=== PATIENT | female | born 1945 | race Caucasian/White ===

== ENCOUNTER 2025-04-06 15:45 | Inpatient (IN) | payer MEDICARE, MEDICAID ==
[~2025-04-06] VITALS: Ht 160 cm; Wt 85.3 kg
[2025-04-06 15:45] VITALS: BP 119/59; PULSE 68; RESP 18; TEMP 36.4; O2SAT 97
[~2025-04-06 15:45] MED LIST: ATOR40TA70 PO; FURO40TA5 PO; SACU1TAB7 PO; SPIR25TA6 PO
[2025-04-06] MEDS ORDERED: GUAIFENESIN 200MG/10ML SUGAR FREE UDC PO PRN (17:00)
[2025-04-06] MEDS ORDERED: ACETAMINOPHEN 650MG/20.3ML UDC PO PRN (17:00)
[2025-04-06] MEDS ORDERED: MAGNESIUM/ALUMINUM HYDROXIDE/SIMETHICONE 30ML UDC PO PRN (17:00)
[2025-04-06] MEDS ORDERED: CLONIDINE 0.1MG TABLET PO PRN (17:00)
[2025-04-06] MEDS ORDERED: DEXTROSE 50% WATER 50ML SYRINGE IV PRN ×2 (17:00→17:30)
[2025-04-06] MEDS ORDERED: INSULIN LISPRO 100 UNITS/ML SUBCUT SCH (17:00)
[2025-04-06] MEDS ORDERED: ONDANSETRON HCL 4MG/2ML INJ IV PRN (17:00)
[2025-04-06] MEDS: BLOOD SUGAR DIAGNOSTIC STRIP TEST SCH (17:31)
[2025-04-06] MEDS ORDERED: IPRATROPIUM/ALBUTEROL 0.5-3(2.5)MG/3ML NEB HHN PRN (17:31)
[2025-04-06] MEDS: INSULIN LISPRO 100 UNITS/ML SUBCUT SCH (17:35)
[2025-04-06 19:00] VITALS: BP 135/72; PULSE 84; RESP 18; TEMP 36.6
[2025-04-06 20:00] VITALS: BP 122/56; PULSE 84; RESP 18; TEMP 36.6; O2SAT 99
[2025-04-06] MEDS ORDERED: BLOOD SUGAR DIAGNOSTIC STRIP TEST SCH (21:00)
[2025-04-06] MEDS: ATORVASTATIN CALCIUM 40MG TABLET PO SCH (21:14)
[2025-04-06] MEDS: CARVEDILOL 3.125 MG TABLET PO SCH (21:14)
[2025-04-06] MEDS: SACUBITRIL/VALSARTAN 49MG/51MG TABLET PO SCH (21:14)
[2025-04-06] MEDS: FAMOTIDINE 20MG TABLET PO SCH (21:20)
[2025-04-07 07:21] LABS: HEMATOCRIT. 35.9 % (36.0-48.0); MEAN CORPUSCULAR HEMOGLOBIN 31.9 pg (28.0-32.0); MEAN CORPUSCULAR HGB CONC 33.3 g/dL (31.0-37.0); MEAN CORPUSCULAR VOLUME 95.6 fL (81.0-99.0); MEAN PLATELET VOLUME 7.5 fl (7.4-10.4); PLATELET 228 x1000/uL (130-400); RED BLOOD CELL COUNT 3.76 mill/uL (4.2-5.4); RED CELL DISTRIBUTION WIDTH 15.2 % (11.6-14.6); WHITE BLOOD COUNT 7.5 x1000/uL (4.5-11.0)
[2025-04-07 07:23] LABS: CARBON DIOXIDE 28 mEq/L (21-32); CHLORIDE 106 mEq/L (98-107); POTASSIUM 4.2 mEq/L (3.5-5.1); SODIUM 142 mEq/L (136-145)
[2025-04-07 07:24] LABS: CALCIUM 8.7 mg/dL (8.7-10.4)
[2025-04-07 07:28] LABS: CREATININE 0.8 mg/dL (0.6-1.0); GLUCOSE 96 mg/dL (70-105)
[2025-04-07 07:29] LABS: UREA NITROGEN BLOOD 19 mg/dL (9-23)
[2025-04-07 07:30] LABS: ALANINE AMINOTRANSFERASE 33 IU/L (10-49); ALBUMIN 3.5 g/dL (3.2-4.8); ASPARTATE AMINOTRANSFERASE 23 IU/L (<34)
[2025-04-07 07:31] LABS: BILIRUBIN TOTAL 0.8 mg/dL (0.1-1.0); PREALBUMIN 18.1 mg/dl (10.0-40.0); PROTEIN TOTAL 5.3 g/dL (6.0-8.3); THYROID STIMULATING HORMONE 1.97 uIU/mL (0.55-4.78)
[2025-04-07 07:37] LABS: FERRITIN 305 ng/mL (10-291); FOLIC ACID (FOLATE) SERUM 14.66 ng/mL (>5.38)
[2025-04-07 07:38] LABS: VITAMIN B12 SERUM 621 pg/mL (211-911)
[2025-04-07 07:46] LABS: IRON 56 ug/dL (50-170)
[2025-04-07 07:48] LABS: TOTAL IRON BINDING CAPACITY 261 ug/dl (250-425)
[2025-04-07 07:53] LABS: DIFFERENTIAL COMMENT 1
[2025-04-07 08:00] VITALS: BP 110/48; PULSE 91; RESP 18; TEMP 36.1; O2SAT 97
[2025-04-07] MEDS: LIDOCAINE 5% PATCH TOP SCH (08:52)
[2025-04-07] MEDS: ENOXAPARIN 40MG/0.4ML SYR SUBCUT SCH (08:53)
[2025-04-07] MEDS: DOCUSATE SODIUM 100MG CAPSULE PO SCH (08:53)
[2025-04-07] MEDS: NICOTINE 7MG PATCH TD SCH (08:53)
[2025-04-07] MEDS: EMPAGLIFLOZIN 10MG TABLET PO SCH (08:54)
[2025-04-07 20:00] VITALS: BP 146/78; PULSE 93; RESP 20; TEMP 36; O2SAT 93
[2025-04-07 20:13] LABS: PLATELET ESTIMATE NORMAL
[2025-04-08 08:00] VITALS: BP 116/64; PULSE 86; RESP 18; TEMP 36.4; O2SAT 98
[2025-04-08] MEDS: ACETAMINOPHEN 650MG/20.3ML UDC PO PRN (12:34)
[2025-04-08] MEDS: IBUPROFEN 400MG TABLET PO PRN (15:33)
[2025-04-08 20:00] VITALS: BP 116/63; PULSE 74; RESP 18; TEMP 35.9; O2SAT 100
[2025-04-09 08:00] VITALS: BP 106/53; PULSE 71; RESP 20; TEMP 36.4; O2SAT 100
[2025-04-09 09:30] VITALS: BP_SYST 79; BP_SYST 92; BP_DIAS 43; BP_DIAS 68
[2025-04-09 10:30] VITALS: BP 101/73
[2025-04-09 20:00] VITALS: BP 104/39; PULSE 78; RESP 18; TEMP 36.4; O2SAT 100
[2025-04-10 08:00] VITALS: BP 110/59; PULSE 50; RESP 18; TEMP 36.8; O2SAT 99
[2025-04-10] MEDS: ERGOCALCIFEROL 50000UNITS CAPSULE PO SCH (09:02)
[2025-04-10 20:00] VITALS: BP 106/42; PULSE 54; RESP 19; TEMP 36; O2SAT 97
[2025-04-11 08:00] VITALS: BP 97/59; PULSE 58; RESP 19; TEMP 36.4; O2SAT 98
[2025-04-11 20:00] VITALS: BP 117/55; PULSE 64; RESP 19; TEMP 36.6; O2SAT 95
[2025-04-12 08:00] VITALS: BP 118/50; PULSE 86; RESP 18; TEMP 36.4; O2SAT 97
[2025-04-12] MEDS ORDERED: SODIUM CHLORIDE 45ML SPRAY NS PRN (19:30)
[2025-04-12 20:00] VITALS: BP 94/38; PULSE 84; RESP 19; TEMP 36.3; O2SAT 97
[2025-04-13] VITALS: BP 102/60; RESP 20; TEMP 36.1; O2SAT 96
[2025-04-13 07:09] LABS: HEMATOCRIT. 33.7 % (36.0-48.0); HEMOGLOBIN. 11.1 g/dL (12.0-16.0); MEAN CORPUSCULAR HEMOGLOBIN 31.9 pg (28.0-32.0); MEAN CORPUSCULAR HGB CONC 32.9 g/dL (31.0-37.0); MEAN CORPUSCULAR VOLUME 96.8 fL (81.0-99.0); MEAN PLATELET VOLUME 7.1 fl (7.4-10.4); PLATELET 248 x1000/uL (130-400); RED BLOOD CELL COUNT 3.48 mill/uL (4.2-5.4); RED CELL DISTRIBUTION WIDTH 16.1 % (11.6-14.6)
[2025-04-13 07:16] LABS: DIFFERENTIAL COMMENT 1
[2025-04-13 07:24] LABS: CARBON DIOXIDE 26 mEq/L (21-32); CHLORIDE 109 mEq/L (98-107); POTASSIUM 4.1 mEq/L (3.5-5.1); SODIUM 144 mEq/L (136-145)
[2025-04-13 07:30] LABS: CREATININE 0.9 mg/dL (0.6-1.0); GLUCOSE 92 mg/dL (70-105); UREA NITROGEN BLOOD 16 mg/dL (9-23)
[2025-04-13 08:00] VITALS: BP 96/54; PULSE 77; RESP 20; TEMP 36.5; O2SAT 100
[2025-04-13 14:35] LABS: ANISOCYTOSIS 1+; ATYPICAL LYMPHOCYTES 8; PLATELET ESTIMATE NORMAL
[2025-04-13] MEDS ORDERED: IPRATROPIUM/ALBUTEROL 0.5-3(2.5)MG/3ML NEB HHN PRN (16:30)
[2025-04-13 20:00] VITALS: BP 126/105; PULSE 86; RESP 19; TEMP 36.4; O2SAT 96
[2025-04-14] MEDS: IPRATROPIUM/ALBUTEROL 0.5-3(2.5)MG/3ML NEB HHN SCH (00:10)
[2025-04-14 08:00] VITALS: BP 109/52; PULSE 79; RESP 18; TEMP 36.6; O2SAT 97
[2025-04-14 20:00] VITALS: BP 116/73; PULSE 81; RESP 18; TEMP 36.3; O2SAT 95
[2025-04-15 08:00] VITALS: BP 97/64; PULSE 84; RESP 18; TEMP 36.2; O2SAT 98
[2025-04-15 20:00] VITALS: BP 135/69; PULSE 69; RESP 18; TEMP 36.4; O2SAT 98
[2025-04-15] MEDS: SODIUM CHLORIDE 45ML SPRAY NS SCH (20:17)
[2025-04-16 08:00] VITALS: BP 109/55; PULSE 87; RESP 20; TEMP 36.3; O2SAT 98
[2025-04-16 20:00] VITALS: BP 128/76; PULSE 91; RESP 20; TEMP 36.5; O2SAT 91
[2025-04-17 08:00] VITALS: BP 99/66; PULSE 82; RESP 19; TEMP 36.6; O2SAT 98
[2025-04-17 08:14] VITALS: BP 110/66; PULSE 99; TEMP 97.8; O2SAT 97
[2025-04-17 08:21] VITALS: PULSE 63; RESP 18; O2SAT 100
[2025-04-17 09:34] VITALS: BP 99/66; RESP 19
[2025-04-17] MEDS ORDERED: IBUP-2028 PO (09:42)
[2025-04-17] MEDS ORDERED: SACU1TAB7 PO (09:42)
[2025-04-17] MEDS ORDERED: COR3 PO (09:42)
[2025-04-17] MEDS ORDERED: ERGO1250 PO (09:42)
[2025-04-17] MEDS ORDERED: ATOR40TA70 PO (09:42)
[2025-04-17] MEDS ORDERED: FAMO20TA8 PO (09:42)
[2025-04-17] MEDS ORDERED: EMPA10TA PO (09:42)
[2025-04-17] MEDS ORDERED: BUDESONIDE 0.5MG/2ML NEB HHN SCH (12:00)
== END 2025-04-17 11:30 | disposition home health service (06) | DRG 552 ==
PROVIDERS: ADMIT Physical Medicine & Rehabilitation Spinal Cord Injury Medicine; ATTEND Internal Medicine
DX: M48.061 Spinal stenosis, lumbar region without neurogenic claudication (principal); F03.918 Unspecified dementia, unspecified severity, with other behavioral disturbance; F03.93 Unspecified dementia, unspecified severity, with mood disturbance; I42.9 Cardiomyopathy, unspecified; I50.20 Unspecified systolic (congestive) heart failure; N17.9 Acute kidney failure, unspecified; N39.0 Urinary tract infection, site not specified; E11.42 Type 2 diabetes mellitus with diabetic polyneuropathy; E11.65 Type 2 diabetes mellitus with hyperglycemia; E66.811 Obesity, class 1; E78.00 Pure hypercholesterolemia, unspecified; E86.0 Dehydration; I48.0 Paroxysmal atrial fibrillation; L30.4 Erythema intertrigo; M47.819 Spondylosis without myelopathy or radiculopathy, site unspecified; M48.54XD Collapsed vertebra, not elsewhere classified, thoracic region, subsequent encounter for fracture with routine healing; M48.8X4 Other specified spondylopathies, thoracic region; E87.5 Hyperkalemia; F17.210 Nicotine dependence, cigarettes, uncomplicated; M48.56XD Collapsed vertebra, not elsewhere classified, lumbar region, subsequent encounter for fracture with routine healing; R32 Unspecified urinary incontinence; W18.39XA Other fall on same level, initial encounter; M51.369 Other intervertebral disc degeneration, lumbar region without mention of lumbar back pain or lower extremity pain; Z60.2 Problems related to living alone; R26.9 Unspecified abnormalities of gait and mobility; M51.379 Other intervertebral disc degeneration, lumbosacral region without mention of lumbar back pain or lower extremity pain; R58 Hemorrhage, not elsewhere classified; E83.42 Hypomagnesemia; M48.04 Spinal stenosis, thoracic region; S30.0XXD Contusion of lower back and pelvis, subsequent encounter; S34.109D Unspecified injury to unspecified level of lumbar spinal cord, subsequent encounter; Z68.30 Body mass index [BMI] 30.0-30.9, adult; Z82.49 Family history of ischemic heart disease and other diseases of the circulatory system; Z83.3 Family history of diabetes mellitus; Z90.710 Acquired absence of both cervix and uterus; Z91.81 History of falling; Y93.89 Activity, other specified; Y92.89 Other specified places as the place of occurrence of the external cause; Y99.8 Other external cause status; Z71.6 Tobacco abuse counseling
CPT/HCPCS: 36415; 71045; 80048; 80053; 82306; 82607; 82728; 82746; 82962; 83036; 83540; 83550; 84134; 84443; 85025; 92523; 92610; 94070; 97110; 97116; 97162; 97166; 97530; 97535; 97542; J1650; J1815